=== PATIENT | female | born 1980 | race Caucasian/White ===

== ENCOUNTER 2019-05-20 15:05 | Emergency (ER) | payer OTHER, SELFPAY ==
[2019-05-20 15:06] VITALS: BP 141/85; PULSE 75; RESP 16; TEMP 37.2; O2SAT 98; BMI 27.4
--- NOTE | 2019-05-20 15:21 | CT_ITS ---
STUDY: CT ABDOMEN AND PELVIS WITHOUT CONTRAST REASON FOR EXAM: Female, 38 years old. History of kidney stones RADIATION DOSAGE (If Supplied By Facility): CTDIvol = ( 10.20 ) mGy, DLP = ( 495.21 ) mGycm TECHNIQUE: Transaxial images were obtained from the dome of the diaphragm to the symphysis pubis without oral contrast, and without intravenous contrast. Sagittal and coronal images were reconstructed. Individualized dose optimization techniques were used for this CT. COMPARISON: None. FINDINGS: This is a limited non-IV and nonoral contrast study. The visualized lung bases are unremarkable. The visualized portions of the heart are within normal limits. Normal liver. The gallbladder is not well visualized likely due to contracted gallbladder.. Normal spleen. Normal pancreas. Normal bilateral adrenal glands. Normal right kidney. There is a left ureteral stent. The superior aspect of the stent is within mid left ureter at approximately the L4 level. The anterior aspect of the stent extends into the bladder. There is a punctate 2 mm hyperdensity adjacent to the stent within the distal ureter. There is no significant hydronephrosis. There are no renal calculi. Normal visualized stomach. Normal small intestine. There is a moderate colonic fecal load. The appendix is visualized and appears normal. There are likely right ovarian follicular cyst. Normal abdominal aorta. Normal inferior vena cava. Normal retroperitoneum. Normal urinary bladder. Normal abdominal wall. There is posterior bulging annulus with likely small central posterior disc protrusion. There is mild central canal stenosis with mild compression on the S1 nerve roots within the central canal. There is a 3.8 x 2.8 cm left adnexal ovarian cyst. CT/Abdomen/Pelvis without Cont IMPRESSION: Limited non-IV and nonoral contrast CT study left ureteral stent. The superior aspect of the stent is within mid left ureter at approximately the L4 level. The inferior aspect of the stent extends into the bladder. There is a punctate 2 mm hyperdensity adjacent to the stent within the distal ureter suspicious for small calculus versus streak artifact from the stent. Moderate colonic fecal load 3.8 x 2.8 cm left adnexa likely ovarian cyst, this could be further evaluated with pelvic ultrasound At L5-S1 there is a posterior bulging annulus with likely small central posterior disc protrusion. There is mild central canal stenosis with mild compression on the S1 nerve roots within the central canal. Electronically Signed: Saul Aguila, at 16:47 EDT Tel , Service support ,
--- NOTE | 2019-05-20 15:25 | ED.DCSUM_ITS ---
- ER Visit Summary Date of Service: 05/20/19 Chief Complaint: Left flank pain History of Present Illness: The patient is a 38 F presenting with left flank pain. Patient states she started having left flank pain at the beginning of April. She had a stent placed for kidney stone 3 weeks ago in [place]. She now has hematuria and increasing pain. She took ibuprofen yesterday. She did not take any medication today. She states the pain is 3 out of 10. She denies fever. She complains of dysuria and hematuria. Denies other complaints. Physical Examination: Vitals are stable. Patient is afebrile. Alert no acute distress. HEENT exam is unremarkable. Neck is supple. Lungs are clear and equal bilaterally. Heart is regular rate and rhythm. Abdomen is soft nontender nondistended. No guarding or rebound Back mild left CVA tenderness Extremities are unremarkable. Skin is warm and dry. Remainder of exam is unremarkable. Emergency Department Course and Treatment: She declined IV fluids, Zofran, Toradol. She was given ibuprofen. Urinalysis with 5-10 white blood cells, over 100 red blood cells, 3+ bacteria. hCG negative. CT flank shows limited non-IV and nonoral contrast CT study left ureteral stent. The superior aspect of the stent is within mid left ureter at approximately the L4 level. The inferior aspect of the stent extends into the bladder. There is a punctate 2 mm hyperdensity adjacent to the stent within the distal ureter suspicious for small calculus versus streak artifact from the stent. Moderate colonic fecal load. 3.8 x 2.8 cm left adnexa likely ovarian cyst, this could be further evaluated with pelvic ultrasound. At L5-S1 there is a posterior bulging annulus with likely small central posterior disc protrusion. There is mild central canal stenosis with mild compression on the S1 nerve roots within the central canal. She denies back pain, bowel or bladder incontinence, numbness or weakness. Urine culture was sent. Patient was started on Cipro. She is resting comfortably in the ED and is requesting discharge. She declined pelvic ultrasound. She is advised to follow-up with urology. Advised to return to the ED for worsening complaints. Disposition: Discharge home Impression: Urolithiasis This note was generated with COM DEV dictation software. It may contain incorrect words, spelling, and punctuation that were not noted in review of the chart prior to signing ED Disposition - Plan for ED Patient: Instructions: KIDNEY STONE w/ Colic Prescriptions: Ciprofloxacin [Cipro] 500 mg PO BID #14 tab Prescription Printed Referrals: Chanel Alves MD [STAFF PHYSICIAN] - Jimi Sherman MD [STAFF PHYSICIAN] - Elaine Lee MD [STAFF PHYSICIAN] -
[2019-05-20] MEDS: Ibuprofen 600 MG Tablet PO (15:39)
[2019-05-20 15:41] LABS: Mucous, Urine 0 SEEN /hpf (<or=2+)
[2019-05-20 15:52] LABS: Color, Urine Amber (Yellow); Glucose, Dipstick Normal (Normal); Ketone-Dipstick 5 mg/dl (Negative); Leukocyte Esterase-Dipstick 100 /ul (Negative); Nitrite-Dipstick Positive (Negative); Occult Blood-Urine 250 /ul (Negative); Protein-Dipstick 100 mg/dl (Negative); Urine Bilirubin Dipstick Negative (Negative); Urine Clarity Cloudy (Clear); Urine Urobilinogen 4 mg/dl (Normal); Urine pH 6.5 (5.0 - 8.0)
[2019-05-20 16:02] LABS: Internal QC Validated? YES +Cl - CLEAR BKGD; Pregnancy, Urine Negative Negative
[2019-05-20 16:05] LABS: Red Blood Cells-Urine > 100 SEEN /hpf (0-5)
[2019-05-20 16:07] LABS: Bacteria 3+ /hpf (None Seen); Squamous Epithelial Cells - UA 10-25 SEEN /hpf (5-10); White Blood Cells 5-10 SEEN /hpf (0-5)
--- NOTE | 2019-05-20 18:17 | ED.DEP ---
ED Disposition - Plan for ED Patient: Instructions: KIDNEY STONE w/ Colic Prescriptions: Ciprofloxacin [Cipro] 500 mg PO BID #14 tablet Referrals: Chanel Alves MD [STAFF PHYSICIAN] - Jimi Sherman MD [STAFF PHYSICIAN] - Elaine Lee MD [STAFF PHYSICIAN] -
[2019-05-20] MEDS: Ciprofloxacin 500 MG Tablet PO (18:27)
== END 2019-05-20 18:32 | disposition home or self-care (01) ==
LOC: ED 16:08
PROVIDERS: Emergency Provider Emergency Medicine
DX: N20.9 Urinary calculus, unspecified (principal); R31.9 Hematuria, unspecified; R30.0 Dysuria; Z87.442 Personal history of urinary calculi
CPT/HCPCS: 74176; 81001; 81025; 87086; 87088; 99283; J2405